=== PATIENT | female | born 1965 | race Two or more races ===

== ENCOUNTER → 2025-06-17 | Outpatient (CLI) | payer MEDICAID, SELFPAY ==
--- NOTE | 2025-06-17 10:00 | XR_ITS ---
EXAMINATION: PA lateral chest 2 views TECHNIQUE: Upright PA lateral chest 2 views Date and time: June 17, 2025, 10:17 a.m., comparison October 09, 2019 INDICATIONS: Coughing beginning 5 days ago. FINDINGS: Mild prominence left ventricle. No pneumonia or pulmonary edema. Moderate osteopenia IMPRESSION: No active disease
== END | disposition home or self-care (01) ==
PROVIDERS: PCP Internal Medicine; Referring Provider Internal Medicine; Visit Provider Internal Medicine
DX: R05.9 Cough, unspecified (principal)
CPT/HCPCS: 71046